=== PATIENT | female | born 1980 | race Caucasian/White ===

== ENCOUNTER 2024-03-17 10:05 | Emergency (ER) | payer OTHER, SELFPAY ==
[2024-03-17 10:30] VITALS: BP 110/70
[2024-03-17 10:48] LABS: % Basophils 0.4 % (0-2); % Eosinophils 0.2 % (0-6); % Immature Granulocytes 0.4 % (0-0.5); % Monocytes 7.1 % (1.7-9.3); % Neutrophils 85.9 % (42.2-75.2); Absolute Lymphocytes 0.5 10^3/uL (1.2-3.4); Absolute Monocytes 0.6 10^3/uL (0.1-0.6); Absolute Neutrophils 7.3 10^3/uL (1.4-6.5); Hematocrit 31.6 % (37.0-47.0); Hemoglobin 10.7 g/dL (12.0-16.0); Mean Corp Hgb Conc. 33.9 g/dL (33.0-37.0); Mean Corpuscular Hgb 29.5 pg (27.0-31.0); Mean Corpuscular Volume 87.1 fL (81.0-99.0); Mean Platelet Volume 9.3 fL (7.4-10.4); Nucleated Red Blood Cells % 0 %; Platelet Count 144 10^3/uL (130-400); Red Blood Cell Count 3.63 10^6/uL (4.20-5.40); Red Cell Dist. Width 12.9 % (11.5-14.5); White Blood Cell Count 8.5 10^3/uL (4.8-10.8)
[2024-03-17 11:07] LABS: ALT (SGPT) 16 U/L (0-35); AST (SGOT) 24 U/L (14-36); Albumin 3.7 g/dl (3.5-5.0); Alkaline Phosphatase 122 U/L (38-126); Blood Urea Nitrogen 10 mg/dl (7-17); Calcium 8.5 mg/dl (8.4-10.2); Carbon Dioxide 25 mmol/L (22-30); Chloride 101 mmol/L (98-107); Glucose 122 mg/dl (70-99); Potassium 3.8 mmol/L (3.5-5.1); Sodium 136 mmol/L (135-145); Total Bilirubin 0.4 mg/dl (0.2-1.3); Total Protein 6.1 g/dl (6.3-8.2); eGFR > 60.00
--- NOTE | 2024-03-17 11:51 | ED.GENMED ---
History of Present Illness
General
Chief Complaint: Cold/Flu/URI Symptoms
Time Seen by Provider: 03/17/24 11:44
History of Present Illness
History of Present Illness:
Patient presents to the emergency department with cough, congestion, fever, body aches. Symptoms started 2 days ago. Patient had negative flu and COVID testing yesterday. No recent travel. No sick contacts. No animal or bug bites. Denies
abdominal pain vomiting or diarrhea. Denies urinary
Past History
Past History
ED Past Medical History: Valvular disease (Mitral valve prolapse )
ED Past Surgical History: Gynecological (D. and C. 2004 )
Social History
Tobacco: Non-smoker
Alcohol: None
Personal: Single
Living: with family
Employment: Employed
Phy Exam
Physical Exam
Physical Exam:
GENERAL APPEARANCE: Uncomfortable appearing, bundled up, feels warm
EYES lids/conjunctiva normal
EARS/NOSE/THROAT Mucous membranes moist, audible nasal congestion, postnasal drip present. Mild pharyngeal erythema
HEAD/NECK normocephalic atraumatic, neck is supple.
RESPIRATORY frequent coughing, respiratory effort normal, speaks in full sentences, no accessory muscle use. Lungs clear to auscultation without rhonchi, wheezes, rales
CARDIAC Regular rate and rhythm, no edema.
ABDOMINAL Soft, ND/NT.
MUSCLES/EXTREMITIES No abnormal range of motion, no swelling.
SKIN Warm, pink and dry. No rashes
NEUROLOGICAL Speech is clear and appropriate. Normal level of consciousness. 5/5 strength in all extremities.
PSYCH Normal mood and affect. Judgement/competence is appropriate
Course
Orders/Labs/Results
Orders:
Orders
03/17/24 10:41
Complete Blood Count/With Diff Urgent
Comprehensive Metabolic Panel Urgent
03/17/24 11:50
Ibuprofen [Motrin] 600 mg PO NOW STA
CXR2 [CR Chest - 2 Views ] Urgent
Comment:
Reason For Exam: cough, fever
03/17/24 12:00
COVID-19 Antigen Urgent
Source: Nasal Swab
Influenza A+B Rapid Molecular Urgent
ERIK Source: Nasal Swab
Specimen Description:
Abnormal Lab Results
03/17/24
10:41
RBC 3.63 L 10^6/uL
(4.20-5.40)
Hgb 10.7 L g/dL
(12.0-16.0)
Hct 31.6 L %
(37.0-47.0)
Absolute Neuts (auto) 7.3 H 10^3/uL
(1.4-6.5)
Absolute Lymphs (auto) 0.5 L 10^3/uL
(1.2-3.4)
Neutrophils % 85.9 H %
(42.2-75.2)
Lymphocytes % 6.0 L %
(20.5-51.1)
Glucose 122 H mg/dl
(70-99)
Total Protein 6.1 L g/dl
(6.3-8.2)
03/17/24 10:41
03/17/24 10:41
Vital Signs
Initial and Last Documented VS:
Initial Vital Signs
Temp Pulse Resp BP Pulse Ox
100.9 F H 109 16 110/70 98
03/17/24 10:30 03/17/24 10:30 03/17/24 10:30 03/17/24 10:30 03/17/24 10:30
Last Documented Vital Signs
Temp Pulse Resp BP Pulse Ox
99.0 F 97 18 110/70 95
03/17/24 13:30 03/17/24 13:30 03/17/24 13:30 03/17/24 10:30 03/17/24 13:30
*Critical Care Note
Total Time (30-74mins, 75-104mins- exclusive of procedures): Not Applicable
ED Attending Note
ED Attending Note
ED Attending Note:
Patient with community-acquired pneumonia. Curb 65 score is 0. She is saturating well on room air and in no distress. No risk factors for significant decompensation. Will start on oral antibiotics and instructed to follow-up with her primary
doctor in the next few days.
-
Portions of this chart may have been created with voice recognition software.� Occasional wrong word or��sound alike� substitutions may have occurred due to the inherent limitations of voice recognition software.
Discharge Plan
Departure
Patient Disposition: Home (Routine Discharge)
Date of Disposition: 03/17/24
Time of Disposition: 12:56
Patient with high blood pressure during this ER visit?: No
Discharge Problem:
Community acquired pneumonia
Instructions: Community-Acquired Pneumonia, Adult (DC)
Prescriptions:
New
azithromycin [Zithromax] 250 mg Tablet
250 mg PO DAILY Qty: 6 0RF
Rx Instructions:
2 tabs on day 1
1 tab day 2-5
cefuroxime axetil 250 mg tablet
500 mg PO BID Qty: 14 0RF
No Action
PRENACARE TABLET Capsule
1 cap PO DAILY
ibuprofen 600 MG tablet
600 mg PO Q4HPRN PRN (Reason: moderate pain/cramps) Qty: 30 0RF
Referrals:
Fanny Jessica MD [Family Provider] -
Activity Restrictions/Additional Instructions:
You were found to have pneumonia. Please follow-up with your doctor in the next few days for recheck. Return to the emergency department with difficulty breathing or worsening symptoms.
Interventions
Interventions:
*Risk Screen - Suicide Last Done: 03/17/24 10:30
*Neglect/Abuse Screening Last Done: 03/17/24 10:30
ED- Fall Risk Assessment Last Done: 03/17/24 12:05
*Nursing Disposition Last Done: 03/17/24 14:02
ED- Pulmonary Assessment Last Done: 03/17/24 12:05
Discharge Date and Time
Discharge Date/Time: 03/17/24 14:02
Print Language: CHINESE
[2024-03-17] MEDS: MOTRIN 600 MG PO (12:02)
[2024-03-17 12:34] LABS: COVID-19 Antigen Negative (Negative)
== END 2024-03-17 14:02 | disposition home or self-care (01) ==
LOC: EMR 10:05
PROVIDERS: Emergency Medicine; EMERGENCY PHYSICIAN Emergency Medicine; FAMILY PHYSICIAN Family Medicine
DX: J18.9 Pneumonia, unspecified organism (principal); I38 Endocarditis, valve unspecified; I34.1 Nonrheumatic mitral (valve) prolapse
CPT/HCPCS: 99283; 71046; 80053; 85025; 87502; 87811